=== PATIENT | female | born 1960 | race Two or more races ===

== ENCOUNTER 2019-05-13 07:00 | Day surgery (SDC) | payer OTHER ==
[~2019-05-13] VITALS: Ht 157.5 cm; Wt 77.1 kg
[~2019-05-13 07:00] MED LIST: ACTIGALL300 MG PO; CLONAZEPAM0.5 MG PO; GABAPENTIN800 MG PO; PNEU16DI2; [UNRECOGNIZED DRUG - OTHER] PO
== END 2019-05-13 13:00 | disposition home or self-care (01) ==
LOC: CIR.AMB 07:00 → SURH 10:56 → CIR.AMB 13:00 → SURH 19:19 → O/R 22:05
PROVIDERS: Plastic Surgery; Surgery
PROC: 0HPU0JZ Removal of Synthetic Substitute from Left Breast, Open Approach (ICD-10-PCS; 2019-05-13)
PROC: 0HPT0JZ Removal of Synthetic Substitute from Right Breast, Open Approach (ICD-10-PCS; 2019-05-13)
PROC: 0HRV0JZ Replacement of Bilateral Breast with Synthetic Substitute, Open Approach (ICD-10-PCS; 2019-05-13)
PROC: 0HQV0ZZ Repair Bilateral Breast, Open Approach (ICD-10-PCS; 2019-05-13)
PROC: 0HBU0ZZ Excision of Left Breast, Open Approach (ICD-10-PCS; principal; 2019-05-13 15:15)
PROC: 07B Lymphatic and Hemic Systems, Excision (ICD-10-PCS; 2019-05-13 15:15)
DX: D05.12 Intraductal carcinoma in situ of left breast (principal); N64.81 Ptosis of breast; N62 Hypertrophy of breast; C77.3 Secondary and unspecified malignant neoplasm of axilla and upper limb lymph nodes
CPT/HCPCS: 19301; 19342; 38525; 38792; C1789

== ENCOUNTER 2019-05-16 12:35 | Emergency (ER) | payer OTHER ==
[~2019-05-16] VITALS: Ht 157.5 cm; Wt 77.1 kg
== END 2019-05-16 16:15 | disposition home or self-care (01) ==
LOC: ER 12:35
DX: R21 Rash and other nonspecific skin eruption (principal)

== ENCOUNTER 2019-06-03 05:45 | Day surgery (SDC) | payer OTHER ==
[~2019-06-03 05:45] MED LIST changes: +ACTIGALL300 MG; +XANAX0.25 MG
== END 2019-06-03 13:40 | disposition home or self-care (01) ==
LOC: CIR.AMB 05:45
DX: N93.8 Other specified abnormal uterine and vaginal bleeding (principal)

== ENCOUNTER 2021-06-25 09:31 | Day surgery (SDC) | payer OTHER | END 2021-06-25 13:45 | disposition home or self-care (01) | LOC: AMB-ENDOS 09:31 | PROVIDERS: ATTEND Surgery | DX: D12.2 Benign neoplasm of ascending colon (principal); Z20.822 Contact with and (suspected) exposure to COVID-19 ==

== ENCOUNTER 2021-09-13 05:54 | Day surgery (SDC) | payer OTHER | END 2021-09-13 15:00 | disposition home or self-care (01) | LOC: CIR.AMB 05:54 | PROVIDERS: ATTEND Plastic Surgery | DX: T85.44XA Capsular contracture of breast implant, initial encounter (principal); C50.911 Malignant neoplasm of unspecified site of right female breast; Z90.12 Acquired absence of left breast and nipple ==

== ENCOUNTER 2021-12-04 10:45 | Inpatient (IN) | payer OTHER ==
[~2021-12-04] VITALS: Ht 157.5 cm; Wt 76.2 kg
[2021-12-04] MEDS ORDERED: ARIMIDEX PO (14:20)
[2021-12-04] MEDS ORDERED: ACTICAL PO (14:21)
[2021-12-04] MEDS ORDERED: URSO PO (14:21)
[2021-12-04] MEDS ORDERED: [UNRECOGNIZED DRUG - OTHER] IM (14:22)
[2021-12-09] MEDS ORDERED: PILOCARPINE HCL15 M3 (10:22)
[2021-12-09] MEDS ORDERED: PHENTERMINE HCL30 MG (10:22)
[2021-12-09] MEDS ORDERED: ANASTROZOLE1 MG (10:22)
[2021-12-09] MEDS ORDERED: METFORMIN HCL500 M1 (10:22)
[2021-12-09] MEDS ORDERED: OLOPATADINE HC2.5 ML (10:22)
[2021-12-09] MEDS ORDERED: FLUOROMETHOLONE5 ML (10:22)
[2021-12-09] MEDS ORDERED: PREGABALIN150 MG (10:22)
[2021-12-09] MEDS ORDERED: ACTICAL SOFTGE1 EACH (10:27)
== END 2021-12-11 12:32 | disposition home or self-care (01) | DRG 743 ==
LOC: OB/GYN 12-09 09:45 → SURG-SUITE 12-09 09:59 → O/R 12-09 09:59 → OB/GYN 12-09 10:45 → SURH 12-09 10:45 → OB/GYN 12-09 11:02 → SURG-SUITE 12-09 17:01
PROVIDERS: Obstetrics & Gynecology Gynecology; ADMIT Specialist; ATTEND Specialist
PROC: 0US20ZZ Reposition Bilateral Ovaries, Open Approach (ICD-10-PCS; 2021-12-09)
PROC: 0JQC0ZZ Repair Pelvic Region Subcutaneous Tissue and Fascia, Open Approach (ICD-10-PCS; 2021-12-09)
PROC: 0UT90ZZ Resection of Uterus, Open Approach (ICD-10-PCS; principal; 2021-12-09 09:45)
PROC: 0UT70ZZ Resection of Bilateral Fallopian Tubes, Open Approach (ICD-10-PCS; 2021-12-09 09:45)
DX: D25.1 Intramural leiomyoma of uterus (principal); D25.0 Submucous leiomyoma of uterus; Z20.822 Contact with and (suspected) exposure to COVID-19; N81.11 Cystocele, midline